=== PATIENT | female | born 1975 | race Caucasian/White ===

== ENCOUNTER 2020-04-14 08:27 | Outpatient (REF) | payer OTHER, SELFPAY | END 2020-04-14 08:28 | disposition home or self-care (01) | LOC: HO.LAB 08:27 | PROVIDERS: Visit Provider Internal Medicine | DX: Z20.828 Contact with and (suspected) exposure to other viral communicable diseases (principal) | CPT/HCPCS: C9803; U0003 ==

== ENCOUNTER 2020-06-19 07:14 | Outpatient (REF) | payer OTHER, SELFPAY | END 2020-06-19 07:15 | disposition home or self-care (01) | LOC: HO.LAB 07:14 | PROVIDERS: Visit Provider Internal Medicine | DX: Z20.822 Contact with and (suspected) exposure to COVID-19 (principal) | CPT/HCPCS: 36415; C9803; U0003 ==

== ENCOUNTER 2020-07-29 14:43 | Outpatient (REF) | payer OTHER, SELFPAY ==
[2020-08-03 13:31] LABS: HPV mRNA E6/E7 rflx Not Detected (Not Detected)
== END 2020-07-29 14:44 | disposition home or self-care (01) ==
LOC: HO.LAB 14:43
PROVIDERS: PCP Internal Medicine; Visit Provider Obstetrics & Gynecology
DX: Z01.419 Encounter for gynecological examination (general) (routine) without abnormal findings (principal); Z11.51 Encounter for screening for human papillomavirus (HPV)
CPT/HCPCS: 36415; 87624; 88142

== ENCOUNTER 2020-10-05 14:21 | Outpatient (REF) | payer SELFPAY ==
--- NOTE | ~2020-10-05 | XR_ITS ---
EXAMINATION: XR CHEST CLINICAL INFORMATION: Preprocedure COMPARISON: Previous chest x-ray August 2013 TECHNIQUE: 2 views of the chest were obtained. FINDINGS: No significant abnormality is noted involving the heart, lungs, mediastinum, bony thorax or soft tissues. XR/XR chest 2V IMPRESSION: Unremarkable examination.
== END 2020-10-05 14:22 | disposition home or self-care (01) ==
LOC: HO.XRAY 14:21
PROVIDERS: PCP Internal Medicine; Visit Provider Internal Medicine
DX: Z01.818 Encounter for other preprocedural examination (principal)
CPT/HCPCS: 71046

== ENCOUNTER 2021-04-18 06:43 | Emergency (ER) | payer SELFPAY ==
--- NOTE | ~2021-04-18 | CT_ITS ---
EXAMINATION: CT ABDOMEN AND PELVIS WITH CONTRAST CLINICAL INFORMATION: 45-year-old female with lower abdominal pain. COMPARISON: CT abdomen pelvis 02/17/2011 and abdominal MRI 03/13/2011 TECHNIQUE: Multidetector volumetric images were obtained from the superior aspect of the liver through the pubic symphysis following administration 85 mL of Omnipaque 350 intravenous contrast. Sagittal and coronal reformatted images were obtained on the technologist's workstation. Today's examination is limited secondary to motion artifact. This CT examination was performed using dose optimization techniques as appropriate, variously including the following: *Automated exposure control *Adjustment of mA and/or kV according to patient size (this includes techniques or standardized protocols for targeted exams where dose is matched to indication/reason for exam; i.e. extremities or head) *Use of iterative reconstruction technique DLP: 641 mGy-cm FINDINGS: Evaluation of the lung bases is limited secondary to respiratory motion, however, there is no lobar consolidation identified. The liver demonstrates normal size, contour and attenuation. The gallbladder is normal in appearance. The pancreas, spleen and right adrenal gland are unremarkable. Stable 1.7 cm left adrenal lesion which was previously characterized as an adenoma on MRI imaging from 2010. Symmetrically enhancing kidneys. There is no hydronephrosis bilaterally. Patient is status post gastric bypass. Normal caliber loops of small and large bowel. Normal appendix. Normal caliber abdominal aorta. No retroperitoneal lymphadenopathy. The bladder is decompressed and therefore not optimally characterized. Mild diffuse bladder wall thickening is possible. The uterus is surgically absent. No gross free pelvic fluid. No inguinal lymphadenopathy. Mild to moderate diffuse degenerative changes of the spine. CT/CT abdomen pelvis w con IMPRESSION: No CT evidence for acute abnormality within the abdomen or pelvis.
[2021-04-18 07:15] VITALS: BP 158/79; PULSE 70; RESP 18; TEMP 36.6; O2SAT 100; BMI 30.7
--- NOTE | 2021-04-18 07:30 | ED.ABDPAIN ---
HPI - Abdominal Pain General Chief Complaint: Abdominal Pain Stated Complaint: stomach/abd pain Time Seen by Provider: 04/18/21 07:28 History of Present Illness HPI narrative: Patient is 45 years old presents today with having abdominal pain. The abdominal pain is over the lower abdomen. Associated with pain radiating to the flank. Patient is status post gastric bypass about 9 years ago. Status post hysterectomy. Also had a tummy tuck done a few years ago. No fever no chills. No nausea no vomiting. No coughing or congestion or upper respiratory symptoms. Patient from home. No chest pain or shortness of breath. The pain started this morning. It was very abrupt in onset. Related Data Home Medications Medication Instructions Recorded Confirmed cyclobenzaprine 5 mg tablet 5 mg PO BEDTIME 07/29/20 07/29/20 gabapentin 100 mg capsule 100 mg PO QAM 07/29/20 07/29/20 gabapentin 300 mg capsule 300 mg PO BEDTIME 07/29/20 07/29/20 hydroxyzine HCl 25 mg tablet 25 mg PO TID 07/29/20 07/29/20 lisinopril 30 mg tablet 30 mg PO DAILY 07/29/20 07/29/20 tramadol 50 mg tablet mg PO 07/29/20 07/29/20 Previous Rx's Medication Instructions Recorded sulfamethoxazole 800 1 tab PO BID 7 Days #14 tab 04/18/21 mg-trimethoprim 160 mg tablet (Bactrim DS) Allergies Allergy/AdvReac Type Severity Reaction Status Date / Time No Known Allergies Allergy Verified 07/29/20 14:55 Review of Systems Review of Systems Positive abdominal pain in the low abdomen No pain on urination No cough no congestion or upper respiratory symptoms All systems reviewed otherwise negative Physical Exam Vital Signs: Vital Signs: Last Vital Signs Temp 97.9 F 04/18/21 07:15 Pulse 70 04/18/21 07:15 Resp 18 04/18/21 07:15 BP 158/79 H 04/18/21 07:15 Pulse Ox 100 04/18/21 07:15 Body Mass Index 30.7 Appearance: Alert. Oriented X3. No acute distress. Eyes: Pupils equal, round and reactive to light. ENT: Pharynx normal. Neck: Normal inspection. Neck supple. No lymph nodes noted. No crepitus CVS: Normal heart rate and rhythm. Pulses normal. Normal S1 and S2 Respiratory: No respiratory distress. Breath sounds normal. No Wheezing. No rales Abdomen: Positive lower abdominal pain. No rebound or guarding. No rigidity. No distention. good BS x4 Skin: Skin warm and dry. Normal skin color. Normal skin turgor. Extremities: No lower extremity edema. Neurovascular intact to all extremities. No Lacerations. No Rash Neuro: Oriented X 3. No motor deficit. No sensory deficit. Moving all extermities. No slurred speech MDM - Abdominal Pain MDM Narrative Medical decision making narrative: CT scan of the abdomen showed no acute evidence of obstruction, abscess, perforation. Patient's electrolytes are normal. Patient's urine positive for UTI. Will start patient on antibiotics. Close follow-up on an outpatient basis. In stable condition. Medical Records Attestation: I reviewed the patient's medical records. Lab Data Attestation: I reviewed the patient's lab results. Result diagrams: 04/18/21 07:37 04/18/21 07:37 Labs: Lab Results 04/18/21 04/18/21 04/18/21 Range/Units 07:37 07:37 07:37 WBC 7.6 (4.8-10.8) X10*3/uL RBC 4.33 (4.20-5.50) X10*6/uL Hgb 12.7 (12.0-16.0) g/dl Hct 39.2 (37.0-47.0) % MCV 90.5 (80.0-98.0) fL MCH 29.3 (27.0-33.0) pg MCHC 32.4 (31.0-35.0) g/dl RDW 15.0 (11.0-16.0) % Plt Count 277 (160-400) X10*3/uL MPV 8.9 L (9.4-12.3) fL Immature Gran % (Auto) 0.1 (0.0-0.4) % Neut % (Auto) 67.7 (45-73) % Lymph % (Auto) 21.3 (20-40) % [place] % (Auto) 9.0 (2-11) % Eos % (Auto) 1.2 (0-4) % Baso % (Auto) 0.7 (0-2) % Lymph # (Auto) 1.6 (1.2-4.9) X10*3/uL [place] # (Auto) 0.7 (0.1-1.2) X10*3/uL Eos # (Auto) 0.1 (0.0-0.4) X10*3/uL Baso # (Auto) 0.1 (0.0-0.2) X10*3/uL Abs Immat Gran (auto) 0.01 (0.00-0.03) X10*3/uL Absolute Neuts (auto) 5.1 (2.0-8.3) x10*3/uL Absolute Nucleated RBC 0.000 (0.0-0.012) X10*3/uL Nucleated RBC % (auto) 0.0 (0.0-0.2) /100WBC Sodium 141 (135-145) mmol/L Potassium 3.9 (3.3-5.1) mmol/L Chloride 108 (96-108) mmol/L Carbon Dioxide 27 (22-29) mmol/L Anion Gap 10 L (12-20) BUN 15 (9-16) mg/dL Creatinine 0.68 (0.5-1.4) mg/dL Estim Creat Clear Calc 102.6 Estimated GFR > 60 Random Glucose 84 (60-115) mg/dL Calcium 8.8 (8.4-10.2) mg/dL Total Bilirubin 0.5 (0.0-1.0) mg/dL Direct Bilirubin 0.2 (0.0-0.5) mg/dL AST 24 (5-31) U/L ALT 20 (0-31) U/L Alkaline Phosphatase 85 (39-117) U/L Total Protein 6.4 L (6.5-8.0) g/dL Albumin 4.0 (3.5-5.0) g/dL Lipase 17 (8-78) U/L Urine Color YELLOW Urine Appearance HAZY Urine pH 6.5 (5.0-8.0) Ur Specific Alexander 1.025 (1.005-1.025) Urine Protein NEG (NEG-TRACE) MG/DL Urine Glucose (UA) NEG (NEG) MG/DL Urine Ketones NEG (NEG) MG/DL Urine Blood NEG (NEG) Urine Nitrite POS H (NEG) Ur Leukocyte Esterase 2+ H (NEG) Urine RBC 0 (0) /HPF Urine WBC 5-9 H (0-4) /HPF Ur Squamous Epith Cells 2+ /LPF Urine Bacteria 3+ /LPF Discharge Plan Discharge Clinical Impression: Urinary tract infection Patient Disposition: Home, Self-Care Prescriptions: New sulfamethoxazole-trimethoprim [Bactrim DS] 800-160 mg tablet 1 tab PO BID 7 Days Qty: 14 RF: 0 No Action gabapentin 300 mg capsule 300 mg PO BEDTIME RF: 0 tramadol 50 mg tablet PO RF: 0 cyclobenzaprine 5 mg tablet 5 mg PO BEDTIME RF: 0 gabapentin 100 mg capsule 100 mg PO QAM RF: 0 lisinopril 30 mg tablet 30 mg PO DAILY RF: 0 hydroxyzine HCl 25 mg tablet 25 mg PO TID RF: 0 Referrals: Isabella Patricia MD [Primary Care Provider] - 2 days Print Language: Mozambican [facility] Past Medical History Attestation statement: The following information was validated with the patient. 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
[2021-04-18 07:41] LABS: MANUAL DIFF FLAG NO
[2021-04-18] MEDS: Ketorolac Tromethamine 30 MG/ML VIAL IVPUSH (07:41)
[2021-04-18 07:46] LABS: Basophils Absolute Auto 0.1 X10*3/uL (0.0-0.2); Basophils Percent Auto 0.7 % (0-2); Eosinophils Absolute Auto 0.1 X10*3/uL (0.0-0.4); Eosinophils Percent Auto 1.2 % (0-4); Hematocrit 39.2 % (37.0-47.0); Hemoglobin 12.7 g/dl (12.0-16.0); Imm Gran Abs Auto 0.01 X10*3/uL (0.00-0.03); Imm Gran Pct Auto 0.1 % (0.0-0.4); Lymphocytes Absolute Auto 1.6 X10*3/uL (1.2-4.9); Lymphocytes Percent Auto 21.3 % (20-40); Mean Corpuscular HGB Conc 32.4 g/dl (31.0-35.0); Mean Corpuscular Hemoglobin 29.3 pg (27.0-33.0); Mean Corpuscular Volume 90.5 fL (80.0-98.0); Mean Platelet Volume 8.9 fL (9.4-12.3); Monocytes Absolute Auto 0.7 X10*3/uL (0.1-1.2); Neutrophils Absolute Auto 5.1 x10*3/uL (2.0-8.3); Neutrophils Percent Auto 67.7 % (45-73); Platelet Count 277 X10*3/uL (160-400); Red Blood Count 4.33 X10*6/uL (4.20-5.50); White Blood Count 7.6 X10*3/uL (4.8-10.8)
[2021-04-18 07:49] LABS: Appearance Urine HAZY; Color Urine YELLOW; Glucose Urine UA NEG (NEG); Leukocyte Esterase Urine 2+ (NEG); Nitrite Urine POS (NEG); PH 6.5 (5.0-8.0); Specific Gravity - Urine 1.025 (1.005-1.025); UACC Culture Trigger YES; Urine Blood NEG (NEG); Urine Ketones NEG (NEG); Urine Protein NEG (NEG-TRACE)
[2021-04-18 07:57] LABS: Alanine Aminotransferase 20 U/L (0-31); Alkaline Phosphatase 85 U/L (39-117); Anion Gap 10 (12-20); Aspartate Amino Transferase 24 U/L (5-31); Bilirubin Direct 0.2 mg/dL (0.0-0.5); Bilirubin Total 0.5 mg/dL (0.0-1.0); Blood Urea Nitrogen 15 mg/dL (9-16); Calcium 8.8 mg/dL (8.4-10.2); Carbon Dioxide 27 mmol/L (22-29); Chloride 108 mmol/L (96-108); Creatinine Clr Calc Pharmacy 102.6; Estimated Glomerular Filt Rate > 60; Glucose Random 84 mg/dL (60-115); Lipase 17 U/L (8-78); Potassium 3.9 mmol/L (3.3-5.1); Sodium 141 mmol/L (135-145); Total Protein 6.4 g/dL (6.5-8.0)
[2021-04-18 08:16] LABS: Bacteria Urine 3+ /LPF; RBC Urine 0 /HPF (0); Squamous Epithelial Cell Urine 2+ /LPF
[2021-04-18] MEDS: iohexoL 350 MG/ML 100 ML INFUS..BTL IV (09:18)
[2021-04-18] MEDS: cefTRIAXone sodium 1 GM in 0.9 % Sodium Chloride 50 ML IV (10:21)
== END 2021-04-18 11:11 | disposition home or self-care (01) ==
PROVIDERS: Emergency Provider Emergency Medicine Emergency Medical Services; PCP Internal Medicine
DX: N39.0 Urinary tract infection, site not specified (principal); R10.9 Unspecified abdominal pain; Z79.899 Other long term (current) drug therapy
CPT/HCPCS: 36415; 74177; 80048; 80076; 81001; 83690; 85025; 87086; 87088; 87186; 96365; 96375; 99284; 99285; J0696; J1885; Q9967

== ENCOUNTER 2021-04-21 06:43 | Emergency (ER) | payer SELFPAY ==
--- NOTE | ~2021-04-21 | XR_ITS ---
EXAMINATION: XR ANKLE, LEFT CLINICAL INFORMATION: Left ankle and swelling status post fall. COMPARISON: None TECHNIQUE: AP, lateral, and mortise views of the left ankle. FINDINGS: The bony alignments are intact. Cortices are intact. Mild periarticular soft tissue swelling is present overlying the lateral malleolus as well as posterior aspect of the ankle. Mild osteoarthrosis is noted at the medial tibiotalar joint. Significant enthesopathy at the insertional site of the Achilles tendon to the calcaneus. Small posterior plantar calcaneal spur. XR/XR ankle LT 2V IMPRESSION: 1. Soft tissue swelling around the left ankle predominantly overlying the lateral malleolus without any underlying fracture and/or subluxation or dislocation. 2. 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
[2021-04-21 07:11] VITALS: BP 156/82; PULSE 68; RESP 18; TEMP 36.3; O2SAT 100; BMI 31.1
--- NOTE | 2021-04-21 08:18 | ED.LOWEXIN ---
HPI - Extremity Injury (Lower) General Chief Complaint: Extremity Injury, Lower Stated Complaint: L leg pain Time Seen by Provider: 04/21/21 08:18 Source: patient Mode of arrival: ambulatory Limitations: no limitations History of Present Illness HPI Narrative: 1 night ago she twisted her ankle coming out of the bus complaint: ankle injury Onset (ago): day(s) Injury: Left: ankle Type of Injury: inversion Place: street/outdoors Severity: mild Relieving factors: nothing Exacerbating factors: weight bearing Related Data Home Medications Medication Instructions Recorded Confirmed cyclobenzaprine 5 mg tablet 5 mg PO BEDTIME 07/29/20 07/29/20 gabapentin 100 mg capsule 100 mg PO QAM 07/29/20 07/29/20 gabapentin 300 mg capsule 300 mg PO BEDTIME 07/29/20 07/29/20 hydroxyzine HCl 25 mg tablet 25 mg PO TID 07/29/20 07/29/20 lisinopril 30 mg tablet 30 mg PO DAILY 07/29/20 07/29/20 tramadol 50 mg tablet mg PO 07/29/20 07/29/20 Previous Rx's Medication Instructions Recorded sulfamethoxazole 800 1 tab PO BID 7 Days #14 tab 04/18/21 mg-trimethoprim 160 mg tablet (Bactrim DS) naproxen 500 mg tablet (Naprosyn) 500 mg PO BID #20 tab 04/21/21 Allergies Allergy/AdvReac Type Severity Reaction Status Date / Time No Known Allergies Allergy Verified 04/21/21 07:11 [facility] Past Medical History Medical History Carpal tunnel syndrome 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 Time: 08:40 MDM - Extremity Injury (Lower) Imaging Data ankle xray: Radiologist's impression: IMPRESSION: ? 1. Soft tissue swelling around the left ankle predominantly overlying the lateral malleolus without any underlying fracture and/or subluxation or dislocation. 2. 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 Discharge Plan Discharge Clinical Impression: Ankle sprain and strain Patient Disposition: Home, Self-Care Instructions: Ankle Sprain (ED) Prescriptions: New naproxen [Naprosyn] 500 mg tablet 500 mg PO BID Qty: 20 RF: 0 No Action sulfamethoxazole-trimethoprim [Bactrim DS] 800-160 mg tablet 1 tab PO BID 7 Days Qty: 14 RF: 0 gabapentin 300 mg capsule 300 mg PO BEDTIME RF: 0 tramadol 50 mg tablet PO RF: 0 cyclobenzaprine 5 mg tablet 5 mg PO BEDTIME RF: 0 gabapentin 100 mg capsule 100 mg PO QAM RF: 0 lisinopril 30 mg tablet 30 mg PO DAILY RF: 0 hydroxyzine HCl 25 mg tablet 25 mg PO TID RF: 0 Referrals: Isabella Patricia MD [Primary Care Provider] - 1 week
== END 2021-04-21 09:22 | disposition home or self-care (01) ==
PROVIDERS: Emergency Provider Emergency Medicine; PCP Internal Medicine
DX: S93.402A Sprain of unspecified ligament of left ankle, initial encounter (principal); S96.912A Strain of unspecified muscle and tendon at ankle and foot level, left foot, initial encounter; I10 Essential (primary) hypertension; X50.1XXA Overexertion from prolonged static or awkward postures, initial encounter; Y93.9 Activity, unspecified; Y92.410 Unspecified street and highway as the place of occurrence of the external cause; Y99.9 Unspecified external cause status
CPT/HCPCS: 73600; 99283

== ENCOUNTER 2021-12-06 15:36 | Outpatient (REF) | payer OTHER, SELFPAY ==
--- NOTE | ~2021-12-06 | MM_ITS ---
EXAMINATION: MM SCREENING DIGITAL BREAST TOMOSYNTHESIS, BILATERAL CLINICAL INFORMATION: Screening. Asymptomatic. The lifetime risk of breast cancer based on the Tyrer-Cuzick Model is 8%. COMPARISON: Mammography: 08/12/2018, 08/06/2018, 139., 04/02/2017 TECHNIQUE: Digital breast tomosynthesis is performed in both the craniocaudal and mediolateral oblique views along with computer-aided detection (CAD). Synthesized 2D images are generated from the tomosynthesis. FINDINGS: There are scattered areas of fibroglandular density (ACR BI-RADS breast composition Category b). Breast tissue composition borders on predominantly fatty. Background stromal markings are stable. There are no significant masses, abnormal calcifications, or other abnormalities. There is biopsy clip marker anterior 12:00 left breast. MM/MM tomosynthesis screening BI IMPRESSION: No mammographic evidence of malignancy. ASSESSMENT: BI-RADS 1: Negative RECOMMENDATION: Routine annual mammography screening. This patient's information was entered into a reminder system with a target due date for their next mammogram.
== END 2021-12-06 15:37 | disposition home or self-care (01) ==
LOC: HO.MAMMO 15:36
PROVIDERS: Visit Provider Internal Medicine
DX: Z12.31 Encounter for screening mammogram for malignant neoplasm of breast (principal)
CPT/HCPCS: 77063; 77067

== ENCOUNTER 2022-01-26 08:30 | Outpatient (REF) | payer SELFPAY ==
--- NOTE | ~2022-01-26 | XR_ITS ---
EXAMINATION: CERVICAL SPINE AND RIGHT HIP. CLINICAL INFORMATION: Pain right hip comes and goes.. Neck pain COMPARISON: None TECHNIQUE: Cervical spine 5 views. Right hip and AP pelvis 3 views FINDINGS: Cervical spine: There is normal cervical lordosis. The vertebral heights, alignment and disc heights are normal. There is moderate ventral spondylosis C4-C5 and the C5-C6 disc levels. There is C6-C7 congenital fusion. Bilateral neural foramina are patent on oblique views. No visible acute fracture or dislocation seen. AP pelvis and right hip: There is normal symmetry of SI joints and hip joints. No visible acute fracture or dislocation seen. The soft tissues are normal. 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 Unremarkable AP pelvis and right hip exam.
--- NOTE | ~2022-01-26 | XR_ITS ---
EXAMINATION: CERVICAL SPINE AND RIGHT HIP. CLINICAL INFORMATION: Pain right hip comes and goes.. Neck pain COMPARISON: None TECHNIQUE: Cervical spine 5 views. Right hip and AP pelvis 3 views FINDINGS: Cervical spine: There is normal cervical lordosis. The vertebral heights, alignment and disc heights are normal. There is moderate ventral spondylosis C4-C5 and the C5-C6 disc levels. There is C6-C7 congenital fusion. Bilateral neural foramina are patent on oblique views. No visible acute fracture or dislocation seen. AP pelvis and right hip: There is normal symmetry of SI joints and hip joints. No visible acute fracture or dislocation seen. The soft tissues are normal. 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 Unremarkable AP pelvis and right hip exam.
== END 2022-01-26 08:31 | disposition home or self-care (01) ==
LOC: HO.XRAY 08:30
PROVIDERS: PCP Internal Medicine; Visit Provider Internal Medicine
DX: M25.551 Pain in right hip (principal); M54.12 Radiculopathy, cervical region
CPT/HCPCS: 72052; 73502

== ENCOUNTER → 2022-01-31 13:25 | Outpatient (BNVA) | payer SELFPAY | PROVIDERS: PCP Internal Medicine; Visit Provider Nurse Practitioner Family | DX: M47.816 Spondylosis without myelopathy or radiculopathy, lumbar region (principal); M46.1 Sacroiliitis, not elsewhere classified; M47.812 Spondylosis without myelopathy or radiculopathy, cervical region; M62.838 Other muscle spasm; M53.3 Sacrococcygeal disorders, not elsewhere classified; Q76.49 Other congenital malformations of spine, not associated with scoliosis; M25.551 Pain in right hip; M79.671 Pain in right foot | CPT/HCPCS: 99202 ==